=== PATIENT | female | born 1980 | race American Indian/Alaskan Native ===

== ENCOUNTER 2017-08-06 14:14 | Emergency (ER) | payer OTHER ==
[2017-08-06 14:53] VITALS: BP 151/92
== END 2017-08-07 09:20 | disposition left against medical advice (07) ==
LOC: ED 14:14
DX: Z53.21 Procedure and treatment not carried out due to patient leaving prior to being seen by health care provider (principal)

== ENCOUNTER 2019-03-27 09:03 | Emergency (ER) | payer OTHER ==
[2019-03-27] MEDS ORDERED: ULTRAM PO ONE (09:54)
[2019-03-27] MEDS ORDERED: TORADOL IM ONE (09:54)
--- NOTE | 2019-03-27 09:57 | Emergency Department Report ---
ED Extremity Problem HPI - General Chief complaint: Extremity Problem,Nontraumatic Stated complaint: LT LEG PAIN Time Seen by Provider: 03/27/19 09:47 Source: patient Mode of arrival: Ambulatory Limitations: No Limitations - History of Present Illness Initial comments: 38-year-old female no subcutaneous past medical history presents also complaining to left internal pain 3 days. Pain is intermittent and worse with walking and sitting. She denies any fall, trauma, fever, redness, warmth, or leg swelling. Pain is 8/10 intensity. Patient takes [id number] arthritis medication without improvement. - Related Data Previous Rx's Medication Instructions Recorded Last Taken Type Ibuprofen [Motrin] 800 mg PO Q8HR PRN #30 tablet 03/27/19 Unknown Rx traMADol [Ultram 50 MG tab] 50 mg PO Q6HR PRN #15 tablet 03/27/19 Unknown Rx Allergies Allergy/AdvReac Type Severity Reaction Status Date / Time No Known Allergies Allergy Unverified 08/06/17 14:51 ED Review of Systems ROS: Stated complaint: LT LEG PAIN Other details as noted in HPI Comment: All other systems reviewed and negative ED Past Medical Hx - Social History Smoking Status: Current Every Day Smoker Substance Use Type: Alcohol - Medications Home Medications: Home Medications Medication Instructions Recorded Confirmed Last Taken Type Ibuprofen [Motrin] 800 mg PO Q8HR PRN #30 tablet 03/27/19 Unknown Rx traMADol [Ultram 50 MG tab] 50 mg PO Q6HR PRN #15 tablet 03/27/19 Unknown Rx ED Physical Exam - General Limitations: No Limitations - Other Other exam information: Normal: No acute distress Head: Atraumatic Eyes: Normal appearance ENT: Moist mucous membranes Neck: Normal appearance, no midline cervical tenderness, no meningismus Chest: Clear to auscultation bilaterally, no wheezes, rales, crackles Cardiovascular: Regular rate and rhythm Abdomen: Soft, nontender, nondistended, no rebound or guarding, normal bowel sounds Back: Normal inspection Extremity: Normal appearance, full range of motion. No inguinal adenopathy. Tenderness along the inguinal ligament. Full range of motion of hip with passive and active movement. 2+ distal DP pulses. Legs are symmetrical without swelling. Neuro: Alert and oriented 3, speech normal, no gross motor sensory deficit Psych: Appropriate Skin: No rash ED Course Vital Signs 09/07/19 09/07/19 09/07/19 09:17 10:06 10:08 Temperature 98.2 F Pulse Rate 102 H 72 Respiratory 16 18 Rate Blood Pressure 144/99 Blood Pressure 162/82 [Left] Blood Pressure 178/101 [Right] O2 Sat by Pulse 100 Oximetry ED Medical Decision Making - EKG Data -: EKG Interpreted by Me EKG shows normal: sinus rhythm (no stemi), ST-T waves Rate: normal (62) - Medical Decision Making Clinically patient has inguinal muscle strain without any other systemic symptoms findings at this time. Patient treated with Toradol and tramadol. Outpatient follow-up PMD encouraged. bp noted to be elevated without previous hx + pain at time of exam no cp or back pain complaints pt will be d/ed with pain meds and f/u - Differential Diagnosis muscle strain, arthritis, fracture, DVT, infection Critical Care Time: No Critical care attestation.: If time is entered above; I have spent that time in minutes in the direct care of this critically ill patient, excluding procedure time. ED Disposition Clinical Impression: Strain of left inguinal muscle, Elevated blood pressure reading Disposition: TO HOME OR SELFCARE Is pt being admited?: No Does the pt Need Aspirin: No Condition: Stable Instructions: Muscle Strain (ED), How to Take a Blood Pressure (ED) Additional Instructions: Take your medications as prescribed. Follow-up with your doctor or the clinic/doctor provided. Return if symptoms worsen. Prescriptions: Ibuprofen [Motrin] 800 mg PO Q8HR PRN #30 tablet PRN Reason: Pain, Moderate (4-6) traMADol [Ultram 50 MG tab] 50 mg PO Q6HR PRN #15 tablet PRN Reason: Pain Referrals: PRIMARY CARE, [Primary Care Provider] - 2-3 Days Time of Disposition: 10:27
[2019-03-27 11:26] VITALS: BP 141/70
== END 2019-03-27 11:26 | disposition home or self-care (01) ==
LOC: ED 09:03
DX: S76.912A Strain of unspecified muscles, fascia and tendons at thigh level, left thigh, initial encounter (principal); X58.XXXA Exposure to other specified factors, initial encounter; Y93.89 Activity, other specified; Y92.89 Other specified places as the place of occurrence of the external cause; Y99.8 Other external cause status
CPT/HCPCS: 93005; 93010; 96372; 99282; J1885